=== PATIENT | female | born 1945 | race Caucasian/White ===

== ENCOUNTER 2017-01-24 11:50 | Emergency (ER) | payer MEDICARE ==
[~2017-01-24] VITALS: Ht 160 cm; Wt 50.0 kg
[~2017-01-24 11:50] MED LIST: ALLEGRA60 MG OR; AMANTADINE100 M1 OR; FOSAMAX70 MG PO; NASONEX50 MCG/AC; ZITHROMAX250 MG OR; [UNRECOGNIZED DRUG - OTHER] OR
[2017-01-24 12:35] LABS: HEMATOCRIT 32.1 % (37.0-47.0); HEMOGLOBIN 10.4 g/dl (12.0-16.0); IMMATURE GRANULOCYTES 0.2 % (0.0-1.0); MEAN CORPUSCULAR HGB 32.4 pG CALC (26.0-32.0); MEAN CORPUSCULAR HGB CONC 32.4 g/L CALC (32.0-36.0); NEUT# 4.6 thou/uL (2.00-7.15); RED BLOOD COUNT 3.21 mill/uL (4.20-5.60); RED CELL DISTRI WIDTH 12.6 % (11.5-15.5)
[2017-01-24 12:48] LABS: ACT PARTIAL THROMBO TIME 23.8 SECONDS (20.0-32.5); PROTHROMBIN TIME 10.4 SECONDS (9.0-12.5)
[2017-01-24 12:49] LABS: ALBUMIN 4.5 g/dL (3.2-5.0); ALKALINE PHOSPHATASE 67 u/l (38-126); ANION GAP 15 (6-22 (CALC)); BILIRUBIN, TOTAL 0.5 mg/dL (0.0-1.4); BUN 12 mg/dL (8-23); BUN/CREATININE RATIO 18 (12-20 (CALC)); CALCIUM 9.6 mg/dL (8.4-10.2); CARBON DIOXIDE 27 mmol/l (22-30); CHLORIDE 104 mmol/l (95-108); CREATININE 0.7 mg/dL (0.5-1.0); GFR > 60 ML/MIN (>=60 (CALC)); GFR FOR AFR.AMER. > 60 ML/MIN (>=60 (CALC)); GLUCOSE 103 mg/dL (82-115); SGOT/AST 24 u/l (9-36); SGPT/ALT 31 u/l (11-66); SODIUM 142 mmol/l (137-146); TOTAL PROTEIN 7.1 g/dL (6.3-8.2)
[2017-01-24 13:01] LABS: MYOGLOBIN 77 ng/mL (0 - 62)
[2017-01-24 13:51] LABS: URINE BILIRUBIN - DIPSTICK NEGATIVE (NEGATIVE); URINE BLOOD DIPSTICK NEGATIVE (NEGATIVE); URINE GLUCOSE - DIPSTICK 100 mg/dL (NEGATIVE); URINE KETONE NEGATIVE (NEGATIVE); URINE LEUK ESTERASE NEGATIVE (Negative); URINE NITRITE - DIPSTICK POSITIVE (Negative); URINE PROTEIN - DIPSTICK TRACE mg/dL (NEG-TRACE)
[2017-01-24 13:52] LABS: URINE CLARITY SLIGHT CLOUDY; URINE COLOR ORANGE
[2017-01-24 13:54] LABS: URINE BACTERIA FEW hpf; URINE EPITHELIAL CELLS FEW EPI/hpf (0-FEW)
[2017-01-24] MEDS ORDERED: MYSOLINE50 M2 PO (14:47)
[2017-01-24] MEDS ORDERED: XANAX0.25 MG PO (14:47)
[2017-01-24] MEDS ORDERED: HYDROCO/APAP1 T10 PO (14:47)
[2017-01-24 16:08] VITALS: BP 143/74
== END 2017-01-24 16:22 ==
LOC: ED 11:50
PROVIDERS: Emergency Medicine
DX: R13.10 Dysphagia, unspecified (principal); N39.0 Urinary tract infection, site not specified; R62.7 Adult failure to thrive; G20 Parkinson's disease; K59.09 Other constipation; R29.810 Facial weakness
CPT/HCPCS: J2060

== ENCOUNTER 2017-02-15 11:39 | Emergency (ER) | payer MEDICARE ==
[~2017-02-15] VITALS: Ht 160 cm; Wt 40.0 kg
[~2017-02-15 11:39] MED LIST changes: -ALLEGRA60 MG OR; +ALLEGRA60 MG PO; +HYDROCO/APAP1 T10 PO; +MYSOLINE50 M2 PO; +XANAX0.25 MG PO
[2017-02-15 12:33] LABS: HEMOGLOBIN 11.9 g/dl (12.0-16.0); IMMATURE GRANULOCYTES 0.2 % (0.0-1.0); MEAN CORPUSCULAR HGB 31.7 pG CALC (26.0-32.0); MEAN CORPUSCULAR HGB CONC 33.1 g/L CALC (32.0-36.0); NEUT# 4.22 thou/uL (2.00-7.15); RED BLOOD COUNT 3.75 mill/uL (4.20-5.60); RED CELL DISTRI WIDTH 12.6 % (11.5-15.5)
[2017-02-15 12:33] LABS: URINE BILIRUBIN - DIPSTICK NEGATIVE (NEGATIVE); URINE BLOOD DIPSTICK NEGATIVE (NEGATIVE); URINE CLARITY CLEAR; URINE COLOR YELLOW; URINE GLUCOSE - DIPSTICK NEGATIVE (NEGATIVE); URINE KETONE NEGATIVE (NEGATIVE); URINE LEUK ESTERASE NEGATIVE (NEGATIVE); URINE NITRITE - DIPSTICK NEGATIVE (Negative); URINE PH 7.5 (4.5-8.0); URINE PROTEIN - DIPSTICK NEGATIVE (NEG-TRACE); URINE UROBILINOGEN - DIPSTICK 0.2 E.U./dL (0.2)
[2017-02-15 12:38] LABS: ALBUMIN 4.4 g/dL (3.2-5.0); ALKALINE PHOSPHATASE 70 u/l (38-126); ANION GAP 16 (6-22 (CALC)); BILIRUBIN, TOTAL 0.2 mg/dL (0.0-1.4); BUN 23 mg/dL (8-23); BUN/CREATININE RATIO 40 (12-20 (CALC)); CALCIUM 9.8 mg/dL (8.4-10.2); CARBON DIOXIDE 25 mmol/l (22-30); CHLORIDE 107 mmol/l (95-108); CREATININE 0.6 mg/dL (0.5-1.0); GFR > 60 ML/MIN (>=60 (CALC)); GFR FOR AFR.AMER. > 60 ML/MIN (>=60 (CALC)); GLUCOSE 96 mg/dL (82-115); POTASSIUM 4.2 mmol/l (3.5-5.1); SGOT/AST 27 u/l (9-36); SGPT/ALT 70 u/l (11-66); SODIUM 144 mmol/l (137-146); TOTAL PROTEIN 7.3 g/dL (6.3-8.2)
[2017-02-15 12:50] LABS: MYOGLOBIN 34 ng/mL (0 - 62)
[2017-02-15 14:39] VITALS: BP 110/84
== END 2017-02-15 14:45 | disposition home or self-care (01) ==
LOC: ED 11:39
PROVIDERS: Emergency Medicine
PROC: 0T9B70Z Drainage of Bladder with Drainage Device, Via Natural or Artificial Opening (ICD-10-PCS; principal; 2017-02-15)
DX: E86.0 Dehydration (principal); G20 Parkinson's disease; R94.31 Abnormal electrocardiogram [ECG] [EKG]; Z93.1 Gastrostomy status
CPT/HCPCS: J2060

== ENCOUNTER 2017-03-15 23:54 | Emergency (ER) | payer MEDICARE ==
[~2017-03-15] VITALS: Ht 160 cm; Wt 40.9 kg
[2017-03-16 01:03] VITALS: BP 129/80
== END 2017-03-16 01:05 | disposition home or self-care (01) ==
LOC: ED 23:54
DX: G20 Parkinson's disease (principal); K21.9 Gastro-esophageal reflux disease without esophagitis